=== PATIENT | female | born 1985 | race Hispanic/Latino ===

== ENCOUNTER 2019-08-02 22:30 | Emergency (ER) | payer BC ==
[~2019-08-02] VITALS: Ht 162.6 cm; Wt 129.7 kg
--- NOTE | 2019-08-02 23:14 | Diagnostic Imaging Report ---
EXAMINATION: PA and lateral views of the chest. COMPARISON: None CLINICAL HISTORY: Cough, shortness of breath, flulike symptoms DISCUSSION: Lines/tubes: None. Lungs: The lungs are well inflated and clear. There is no evidence of pneumonia or pulmonary edema. Pleura: There is no pleural effusion or pneumothorax. Heart and mediastinum: Cardiomediastinal silhouette is unremarkable. Pulmonary vasculature is normal. Bones and soft tissues: No acute bony abnormalities. IMPRESSION: No acute cardiopulmonary abnormalities. Signed by: Dr. Brando Damon M.D. on 08/02/2019 11:11 PM
--- OUTSIDE RECORDS SUMMARY | 2019-08-03 06:07 | XMS REPORT | CCD ---
Author Author Auto Generated Organization [facility] Address Unknown Phone Unavailable Care Team Providers Care Safety Glass Installer Name Role Phone EstebanSamueljessi RP Allergies, Adverse Reactions, Alerts Substance Reaction Status NKDA Active Medications Medication Instructions Start Date End Date Status rubella virus 0.5 ml, Route: SUB-Q, Drug Form: 08/14/2009 08/15/2009 Discontinued vaccine PDR/INJ, ONCALL, PRN Vaccination, Start date: 08/14/09 20:28:00, Duration: 30 day, Stop date: 09/13/09 20:27:00 Immunizations Vaccine Date Status rubella virus vaccine1, 2 08/15/2009 Auth (Verified) 1Reason for Medication: Vaccination 2Result Comment: Pt and instructed to not get for 3 months, instructed vaccine could hurt fetus if pt gets within 3 months. pt and state they understand. Vital Signs Most recent to oldest [Reference Range]: 1 Height 162.56 cm (11/25/2011 09:43:00) Weight 137.727 kg (11/25/2011 09:43:00)
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
--- OUTSIDE RECORDS SUMMARY | 2019-08-03 06:07 | XMS REPORT | Summary of Care ---
Author Author [facility] [place] Organization [facility] Address Unknown Phone Unavailable Encounter HQ Alexis(VICENTA) [id number] Date(s): 09/02/15 - 09/02/15 [facility] [address] [place] [phone] Final: Excessive and frequent menstruation with regular cycle Final: Unspecified ovarian cysts Discharge Disposition: Home Attending Physician: Nash Romero MD Vital Signs No data available for this section Problem List No data available for this section Allergies, Adverse Reactions, Alerts Substance Reaction Severity Status NKDA Active Medications No data available for this section Results No data available for this section Immunizations Vaccine Date Refusal Reason influenza virus vaccine, inactivated1 01/15/12 rubella virus vaccine2, 3 08/15/09 1Result Comment: arm Left 2Reason for Medication: Vaccination 3Result Comment: Pt and instructed to not get for 3 months, instructed vaccine could hurt fetus if pt gets within 3 months. pt and state they understand. Procedures No data available for this section Social History No data available for this section Assessment and Plan No data available for this section
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
--- OUTSIDE RECORDS SUMMARY | 2019-08-03 06:07 | XMS REPORT | CCD ---
Author Author Auto Generated Organization [facility] Address Unknown Phone Unavailable Care Team Providers Care Community Health Program Coordinator Name Role Phone Megan Alejo V RP Nash Romero I CP Allergies, Adverse Reactions, Alerts Substance Reaction Status NKDA Active Medications Medication Instructions Start Date End Date Status rubella virus 0.5 ml, Route: SUB-Q, Drug Form: 08/14/2009 08/15/2009 Discontinued vaccine PDR/INJ, ONCALL, PRN Vaccination, Start date: 08/14/09 20:28:00, Duration: 30 day, Stop date: 09/13/09 20:27:00 ibuprofen 800 mg 800 mg, 1 tab, PO, Q12H, PRN, 60 01/14/2012 Ordered oral tablet tab, Other -See Comment, Substitution Allowed, TAB Colace 100 mg oral 100 mg, 1 cap, PO, BID, 120 tab, 01/14/2012 Ordered capsule Substitution Allowed, CAP Vicodin 5/500 oral 1-2 tab, PO, Q4-6H, PRN, 30 tab, 01/14/2012 01/19/2012 Ordered tablet Pain, Substitution Allowed, Maintenance ondansetron 4 mg, 2 mL, Route: IVP, Drug form: 01/13/2012 01/15/2012 Discontinued INJ, Q8H, PRN Nausea & Vomiting, Start date: 01/13/12 13:00:00, Duration: 30 day, Stop date: 02/12/12 12:59:00 methylergonovine 0.2 mg, 1 mL, Route: IM, Drug form: 01/13/2012 01/15/2012 Discontinued INJ, PRN, PRN Other -See Comment, Start date: 01/13/12 13:00:00, Duration: 30 day, Stop date: 02/12/12 13:59:00 zolpidem 5 mg, 1 tab, Route: PO, Drug form: 01/13/2012 01/15/2012 Discontinued TAB, Bedtime, PRN Sleep, Start date: 01/13/12 13:00:00, Duration: 30 day, Stop date: 02/12/12 12:59:00 Dermoplast 20% 1 spray, Route: TOP, PRN, Drug 01/13/2012 01/15/2012 Discontinued topical spray form: SPRY PRN Irritation, Start date: 01/13/12 13:00:00, Duration: 30 day, Stop date: 02/12/12 13:59:00 lanolin topical 1 appl, Route: TOP, PRN, Drug form: 01/13/2012 01/15/2012 Discontinued OINT PRN Other -See Comment, Start date: 01/13/12 13:00:00, Duration: 30 day, Stop date: 02/12/12 13:59:00 docusate 100 mg, 1 cap, Route: PO, Drug 01/13/2012 01/15/2012 Discontinued form: CAP, BID, PRN Constipation, Start date: 01/13/12 13:00:00, Duration: 30 day, Stop date: 02/12/12 12:59:00 M-M-R II 0.5 ml, Route: SUB-Q, Drug Form: 01/13/2012 01/15/2012 Discontinued PDR/INJ, ONCALL, Start date: 01/13/12 13:00:00, Duration: 1 doses or times famotidine 20 mg, 2 mL, Route: IVP, Drug form: 01/12/2012 01/13/2012 Discontinued INJ, ONCALL, Start date: 01/12/12 23:00:00, Duration: 30 day, Stop date: 02/11/12 23:59:00 ondansetron 4 mg, 2 mL, Route: IVP, Drug form: 01/12/2012 01/13/2012 Discontinued INJ, Q8H, PRN Nausea & Vomiting, Start date: 01/12/12 22:58:00, Duration: 30 day, Stop date: 02/11/12 22:57:00 misoprostol 1,000 microgram, 5 tab, Route: NM, 01/12/2012 01/13/2012 Discontinued Drug form: TAB, ONCALL, Start date: 01/12/12 23:00:00, Duration: 1 doses or times metoclopramide 10 mg, 2 mL, Route: IVP, Drug form: 01/12/2012 01/13/2012 Discontinued INJ, ONCALL, Start date: 01/12/12 23:00:00, Duration: 30 day, Stop date: 02/11/12 23:59:00 lidocaine 1% 20 ml, Route: PERCUT, Drug Form: 01/12/2012 01/13/2012 Discontinued INJ, PRN, PRN Other -See Comment, Start date: 01/12/12 22:58:00, Duration: 1 doses or times, Stop date: Limited # of times terbutaline 0.25 mg, 0.25 mL, Route: SUB-Q, 01/12/2012 01/13/2012 Discontinued Drug form: INJ, PRN, PRN Other -See Comment, Start date: 01/12/12 22:58:00, Duration: 1 doses or times, Stop date: Limited # of times methylergonovine 0.2 mg, 1 mL, Route: IM, Drug form: 01/12/2012 01/13/2012 Discontinued INJ, ONCALL, Start date: 01/12/12 23:00:00, Duration: 30 day, Stop date: 02/11/12 23:59:00 citric acid-sodium 30 ml, Route: PO, Drug Form: SOLN, 01/12/2012 01/13/2012 Discontinued citrate ONCALL, Start date: 01/12/12 23:00:00, Duration: 30 day, Stop date: 02/11/12 23:59:00 oxytocin-add to 20 unit, 2 mL, Route: INJ, Drug 01/12/2012 01/13/2012 Discontinued current IV form: SOLN, ONCALL, Start date: 01/12/12 23:00:00, Duration: 2 day, Stop date: 01/14/12 22:59:00 carboprost 250 microgram, 1 mL, Route: IM, 01/12/2012 01/13/2012 Discontinued Drug form: INJ, ONCALL, Start date: 01/12/12 23:00:00, Duration: 30 day, Stop date: 02/11/12 23:59:00 acetaminophen 650 mg, 2 tab, Route: PO, Drug 01/13/2012 01/15/2012 Discontinued form: TAB, Q4H, PRN Headache, Start date: 01/13/12 13:00:00, Duration: 30 day, Stop date: 02/12/12 12:59:00 Lactated Ringers 20 unit, 1,000 mL, Rate: 125 ml/hr, 01/13/2012 01/15/2012 Completed 1000ml+Pitocin 20 Infuse over: 8 hr, Route: IV, Total units IV (Premix) 20 Volume: 1,000 mL, Start date: unit 01/13/12 13:00:00, Duration: 2 day, Stop date: 01/15/12 12:59:00, Replace Every: 8 hr ibuprofen 800 mg, 1 tab, Route: PO, Drug 01/13/2012 01/15/2012 Discontinued form: TAB, Q8H, PRN Pain, Start date: 01/13/12 13:00:00, Duration: 30 day, Stop date: 02/12/12 12:59:00 acetaminophen-hydroc 2 tab, Route: PO, Drug Form: TAB, 01/13/2012 01/15/2012 Discontinued odone 325 mg-5 mg Q4H, PRN Pain Score 4-6, Start oral tablet date: 01/13/12 13:00:00, Duration: 30 day, Stop date: 02/12/12 12:59:00 acetaminophen-hydroc 1 tab, Route: PO, Drug Form: TAB, 01/13/2012 01/15/2012 Discontinued odone 325 mg-5 mg Q4H, PRN Pain Score 1-3, Start oral tablet date: 01/13/12 13:00:00, Duration: 30 day, Stop date: 02/12/12 12:59:00 Lactated Ringers IV 1,000 mL, Rate: 100 ml/hr, Infuse 01/13/2012 01/15/2012 Discontinued 1,000 mL over: 10 hr, Route: IV, Total Volume: 1,000, Start date: 01/13/12 13:00:00, Duration: 30 day, Stop date: 02/12/12 12:59:00, PRN to maintain IV access Lactated Ringers 20 unit, 1,000 mL, Rate: 125 ml/hr, 01/13/2012 01/15/2012 Completed 1000ml+Oxytocin 20 Infuse over: 8 hr, Route: IV, Total units IV (Premix) 20 Volume: 1,000, Start date: 01/13/12 unit 13:00:00, Duration: 2 day, Stop date: 01/15/12 12:59:00, Replace Every: 8 hr, Replace every 24 hrs; PRN for moderate to severe post blee... 1 tab, Route: PO, Drug Form: TAB, 01/14/2012 01/15/2012 Discontinued Multivitamins oral Daily, Start date: 01/14/12 tablet 9:00:00, Duration: 30 day, Stop date: 02/12/12 9:00:00 Lactated Ringers 20 unit, 1,000 mL, Rate: Titrate, 01/12/2012 01/13/2012 Discontinued 1000ml+Pitocin 20 Route: IV, Total Volume: 1,000 mL, units IV (Premix Start date: 01/12/12 23:03:00, Titrate) 20 unit Duration: 2 day, Stop date: 01/14/12 23:02:00, Replace Every: 24 hr butorphanol 1 mg, 0.5 mL, Route: IVP, Drug 01/12/2012 01/13/2012 Discontinued form: INJ, Q2H, PRN Pain Score 1-5, Start date: 01/12/12 22:58:00, Duration: 30 day, Stop date: 02/11/12 22:57:00 ibuprofen 800 mg, 1 tab, Route: PO, Drug 01/12/2012 01/13/2012 Discontinued form: TAB, Q8H, PRN Other -See Comment, Start date: 01/12/12 22:58:00, Duration: 30 day, Stop date: 02/11/12 22:57:00 butorphanol 2 mg, 1 mL, Route: IVP, Drug form: 01/12/2012 01/13/2012 Discontinued INJ, Q2H, PRN Pain Score 6-10, Start date: 01/12/12 22:58:00, Duration: 30 day, Stop date: 02/11/12 22:57:00 acetaminophen-hydroc 2 tab, Route: PO, Drug Form: TAB, 01/12/2012 01/13/2012 Discontinued odone 325 mg-5 mg Q4H, PRN Pain Score 4-6, Start oral tablet date: 01/12/12 22:58:00, Duration: 30 day, Stop date: 02/11/12 22:57:00 acetaminophen-hydroc 1 tab, Route: PO, Drug Form: TAB, 01/12/2012 01/13/2012 Discontinued odone 325 mg-5 mg Q4H, PRN Pain Score 1-3, Start oral tablet date: 01/12/12 22:58:00, Duration: 30 day, Stop date: 02/11/12 22:57:00 Lactated Ringers 1,000 mL, Rate: 100 ml/hr, Infuse 01/12/2012 01/13/2012 Discontinued Injection IV 1,000 over: 10 hr, Route: IV, Total mL Volume: 1,000, Bolus for regional anesthesia per unit protocol, Start date: 01/12/12 22:58:00, Duration: 30 day, Stop date: 02/11/12 22:57:00 Lactated Ringers IV 1,000 mL, Rate: 125 ml/hr, Infuse 01/12/2012 01/13/2012 Discontinued 1,000 mL over: 8 hr, Route: IV, Total Volume: 1,000, Start date: 01/12/12 22:58:00, Duration: 30 day, Stop date: 02/11/12 22:57:00 Lactated Ringers 20 unit, 1,000 mL, Rate: 125 ml/hr, 01/12/2012 01/13/2012 Discontinued 1000ml+Pitocin 20 Infuse over: 8 hr, Route: IV, Total units IV (Premix) 20 Volume: 1,000 mL, Start date: unit 01/12/12 22:58:00, Duration: 2 day, Stop date: 01/14/12 22:57:00, Replace Every: 8 hr penicillin G 2,500,000 unit, Route: IVPB, Drug 01/13/2012 01/14/2012 Discontinued potassium form: PDR/INJ, ABXQ4H, Start date: 01/13/12 3:00:00, Duration: 30 day, Stop date: 02/11/12 23:00:00 Ambien 10 mg, 2 tab, Route: PO, Drug form: 01/12/2012 01/15/2012 Discontinued TAB, Bedtime, PRN Insomnia, Start date: 01/12/12 23:07:00, Duration: 30 day, Stop date: 02/11/12 23:06:00 Cervidil 10 mg, 1 supp, Route: VAG, Drug 01/12/2012 01/13/2012 Completed form: INS, ONCE, Start date: 01/12/12 23:02:00, Duration: 1 doses or times, Stop date: 01/12/12 23:02:00 penicillin G 2,500,000 unit, Route: IVPB, 01/12/2012 01/12/2012 Deleted potassium ABXQ4H, Start date: 01/12/12 23:00:00 penicillin G 5,000,000 unit, Route: IVPB, Drug 01/12/2012 01/12/2012 Completed potassium 5,000,000 form: PDR/INJ, ONCALL, Start date: units injection 01/12/12 23:00:00 influenza virus 0.5 ml, Route: IM, Drug Form: INJ, 01/15/2012 01/15/2012 Completed vaccine, inactivated Start date: 01/15/12 9:00:00, Stop date: 01/15/12 9:00:00 influenza virus 0.5 ml, Route: IM, Drug Form: INJ, 01/15/2012 01/15/2012 Completed vaccine, inactivated Daily, Start date: 01/15/12 9:00:00, Duration: 1 doses or times, Stop date: 01/15/12 9:00:00 Immunizations Vaccine Date Status influenza virus vaccine, inactivated1 01/15/2012 Auth (Verified) rubella virus vaccine2, 3 08/15/2009 Auth (Verified) 1Result Comment: arm Left 2Reason for Medication: Vaccination 3Result Comment: Pt and instructed to not get for 3 months, instructed vaccine could hurt fetus if pt gets within 3 months. pt and state they understand. Vital Signs Most recent to oldest [Reference Range]: 1 Height 162.56 cm (01/12/2012 22:59:00) Weight 138.182 kg (01/12/2012 22:59:00) Results BLOOD BANK RESULTS Most recent to oldest [Reference Range]: 1 ABO/Rh O POS *Unknown* (01/12/2012 22:45:00) Antibody Scrn Negative (01/12/2012 22:45:00) CHEMISTRY Most recent to oldest [Reference Range]: 1 Temp Cord Art 37.0 DegC *NA* (01/13/2012 11:52:00) pH Cord Art [7.11-7.36] 7.25 (01/13/2012 11:52:00) PCO2 Cord Art [37-77 mmHg] 62 mmHg (01/13/2012 11:52:00) PO2 Cord Art [3-33 mmHg] 8 mmHg (01/13/2012 11:52:00) HCO3 Cord Art 27 mMol/L *NA* (01/13/2012 11:52:00) BE Cord Art -1 mMol/L *NA* (01/13/2012 11:52:00) Temp Cord Keith 37.0 DegC *NA* (01/13/2012 11:52:00) pH Cord Keith [7.16-7.41] 7.34 (01/13/2012 11:52:00) PCO2 Cord Keith [31-65 mmHg] 42 mmHg (01/13/2012 11:52:00) PO2 Cord Keith [13-39 mmHg] 28 mmHg (01/13/2012 11:52:00) HCO3 Cord Keith 23 mMol/L *NA* (01/13/2012 11:52:00) BE Cord Keith -3 mMol/L *NA* (01/13/2012 11:52:00) HEMATOLOGY Most recent to oldest [Reference Range]: 1 WBC [3.7-10.4 K/CMM] 10.7 K/CMM *HI* (01/12/2012 23:06:00) RBC [4.20-5.40 M/CMM] 3.87 M/CMM *LOW* (01/12/2012 23:06:00) Hgb [12.0-16.0 g/dL] 11.0 g/dL *LOW* (01/12/2012 23:06:00) Hct [36.0-48.0 %] 32.8 % *LOW* (01/12/2012 23:06:00) MCV [81.0-99.0 fL] 84.8 fL (01/12/2012 23:06:00) MCH [27.0-31.0 pg] 28.4 pg (01/12/2012 23:06:00) MCHC [32.0-36.0 g/dL] 33.4 g/dL (01/12/2012 23:06:00) RDW [11.5-14.5 %] 17.0 % *HI* (01/12/2012 23:06:00) Platelet [133-450 K/CMM] 180 K/CMM (01/12/2012 23:06:00) MPV [7.4-10.4 fL] 10.5 fL *HI* (01/12/2012 23:06:00) Segs [45.0-75.0 %] 72.7 % (01/12/2012 23:06:00) Lymphocytes [20.0-40.0 %] 20.8 % (01/12/2012 23:06:00) Monocytes [2.0-12.0 %] 5.4 % (01/12/2012 23:06:00) Eosinophils [0.0-4.0 %] 0.8 % (01/12/2012 23:06:00) Basophils [0.0-1.0 %] 0.3 % (01/12/2012 23:06:00) Segs-Bands # [1.5-8.1 K/CMM] 7.8 K/CMM (01/12/2012 23:06:00) Lymphocytes # [1.0-5.5 K/CMM] 2.2 K/CMM (01/12/2012 23:06:00) Monocytes # [0.0-0.8 K/CMM] 0.6 K/CMM (01/12/2012 23:06:00) Eosinophils # [0.0-0.5 K/CMM] 0.1 K/CMM (01/12/2012 23:06:00) Basophils # [0.0-0.2 K/CMM] 0.0 K/CMM (01/12/2012 23:06:00) IMMUNOLOGY Most recent to oldest [Reference Range]: 1 RPR [Non Reactive] Non Reactive (01/12/2012 23:06:00) HIV 1/2 Ab (LD) [Negative] Negative *NA* (01/12/2012 23:06:00) Hep Bs Ag [Negative] Negative *NA* (01/12/2012 23:06:00)
--- OUTSIDE RECORDS SUMMARY | 2019-08-03 06:08 | XMS REPORT | Summary of Care ---
Author Author NEREYDA Waller, LUKE Organization Unknown Address [facility] Phone Unavailable Care Team Providers Care Mechanical Assembly Name Role Phone R.N. Unavailable Unavailable Unavailable Unavailable Functional Status Name Dates Details Functional status health issues are not documented Status: Name Dates Details Cognitive status health issues are not documented Status: Problems Name Dates Details Morbid obesity (278.01, E66.01) Status: Active IUGR, (764.90, P05.9) Status: Active High-risk (V23.9, O09.90) Status: Active Encounter for visit (V24.2, Z39.2) Status: Active care following vaginal delivery (V24.2, Z39.2) Status: Active Post-operative state (V45.89, Z98.890) Status: Active Encounter for routine gynecological examination with Papanicolaou smear of cervix (V72.31, Z01.419) Status: Active Medications Name Dates Details Plus Iron 29-1 MG Oral Tablet R.N. * Start : 22-Jul-2016 Active Allergies and Adverse Reactions Name Dates Details No Known Allergies (Allergy) Status: Active Past Medical History Name Dates Details History of No significant past medical history Status: Resolved Procedures Procedure Dates Details . [facility] - Affirm VPIII (BV Panel) Date: 11-Nov-2017 . [facility] - GC/Chlamydia Date: 11-Nov-2017 [Q] HIV AB, HIV 1/2, EIA, WITH REFLEXES Date: 11-Nov-2017 History of Tubal Ligation Completed Immunization Name Dates Details Fluzone INJ Lot #: [id number] on: 22-Jul-2016 Tdap (Adacel) Lot #: [id number] on: 22-Jul-2016 Social History Name Dates Details - Status: Name Dates Details Never smoker Never smoker Vital Signs Date Test Result Details [id number] BP Systolic 114 mm[Hg] Status: Comments: Location: RUE; Position: Sitting BP Diastolic 66 mm[Hg] Status: Comments: Location: RUE; Position: Sitting Height 64 in Status: Weight 300 lb Status: Body Mass Index Calculated 51.5 kg/m2 Status: Body Surface Area Calculated 2.32 m2 Status: Heart Rate 90 /min Status: Results Date Description Value Details [[facility]] CBC (INCLUDES DIFF/PLT) WBC 8.8 {K/CMM} Range: 3.7-10.4 RBC 4.27 {M/CMM} Range: 4.20-5.40 Hgb 12.0 g/dl Range: 12.0-16.0 Hct 36.4 % Range: 36.0-48.0 MCV 85.4 fL Range: 80.0-98.0 MCH 28.2 pg Range: 27.0-31.0 MCHC 33.0 g/dl Range: 32.0-36.0 RDW 14.1 % Range: 11.5-14.5 Platelet 245 {K/CMM} Range: 133-450 Mean Platelet Volume 10.1 fL Range: 7.4-10.4 : [[facility]] Differential Segmented Neutrophils 62.8 % Range: 45.0-75.0 Monocytes 5.2 % Range: 2.0-12.0 Lymphocytes 29.8 % Range: 20.0-40.0 Eosinophils 1.3 % Range: 0.0-4.0 Basophils 0.9 % Range: 0.0-1.0 Segs-Bands # 5.6 {K/CMM} Range: 1.5-8.1 Lymphocytes # 2.6 {K/CMM} Range: 1.0-5.5 Monocytes # 0.5 {K/CMM} Range: 0.0-0.8 Eosinophils # 0.1 {K/CMM} Range: 0.0-0.5 Basophils # 0.1 {K/CMM} Range: 0.0-0.2 :30 [QL] LIPID PANEL Chol 186 mg/dl Range: <=199 Trig 283 mg/dl (Above high threshold) Range: <=149 HDL Cholesterol 55 mg/dl (Below low threshold) Range: >=61 CHD Risk 3.38 (Below low threshold) Range: 3.90-5.80 LDL 74 mg/dl Range: <=99 VLDL 57 :30 [QH] HEPATITIS B SURFACE ANTIGEN W/REFL CONFIRM Hepatitis B Surface Antigen Negative Range: Negative :30 [QLH] HEPATITIS C ANTIBODY Hepatitis C Antibody Negative :30 [H] HIV 4th Gen w/ Reflexes HIV Ag/Ab 4th Gen Negative Range: Negative :30 [QLH] HEMOGLOBIN A1c Hemoglobin A1c 5.5 % Range: <=5.6 : [QLH] RPR RPR Cancel Reason: Modified Order : [H] Treponemal Scr w/ RPR if Indicated Treponemal Screen Non Reactive Range: Non Reactive Plan of Care Name Dates Details Planned Observations Planned Goals not documented Instructions Name Dates Details Instructions not documented Encounters Appointment; ELECTRONIC TEST TECHNICIAN, ROOM1 Encounter Diagnosis: Problem not documented On: 25-May-2016 8:00 Appointment; ELECTRONIC TEST TECHNICIAN, ROOM2 Encounter Diagnosis: Problem not documented On: 15-Jun-2016 7:45 Appointment; ELECTRONIC TEST TECHNICIAN, ROOM1 Encounter Diagnosis: Problem not documented On: 06-Jul-2016 9:30 Appointment; ELECTRONIC TEST TECHNICIAN, ROOM1 Encounter Diagnosis: Problem not documented On: 15-Jul-2016 10:45 Appointment; ELECTRONIC TEST TECHNICIAN, ROOM1 Encounter Diagnosis: Problem not documented On: 20-Jul-2016 10:00 Appointment; ELECTRONIC TEST TECHNICIAN, ROOM1 Encounter Diagnosis: Problem not documented On: 22-Jul-2016 8:45 Appointment; OB/MD HIGH Encounter Diagnosis: Problem not documented On: 22-Jul-2016 10:30 Appointment; OB/RES, US Encounter Diagnosis: Problem not documented On: 26-Jul-2016 9:15 Appointment; OB/RES, US Encounter Diagnosis: Problem not documented On: 29-Jul-2016 13:45 Appointment; OB/RES, US Encounter Diagnosis: Problem not documented On: 02-Aug-2016 13:45 Appointment; OB/RES, ULTRASOUND Encounter Diagnosis: Problem not documented On: 05-Aug-2016 9:00 Appointment; OB/MD HIGH Encounter Diagnosis: Problem not documented On: 05-Aug-2016 10:00 Appointment; OB/RES, US Encounter Diagnosis: Problem not documented On: 09-Aug-2016 10:00 Appointment; OB/RES, ULTRASOUND Encounter Diagnosis: Problem not documented On: 12-Aug-2016 10:30 Appointment; OB/RES, US Encounter Diagnosis: Problem not documented On: 16-Aug-2016 8:30 Appointment; OB/RES, US Encounter Diagnosis: Problem not documented On: 19-Aug-2016 8:30 Appointment; OB/MD, HIGH Encounter Diagnosis: Problem not documented On: 19-Aug-2016 9:30 Appointment; OB/RES, US Encounter Diagnosis: Problem not documented On: 23-Aug-2016 8:30 Appointment; OB/RES, US Encounter Diagnosis: Problem not documented On: 26-Aug-2016 8:30 Appointment; OB/MD, HIGH Encounter Diagnosis: Problem not documented On: 26-Aug-2016 9:30 Appointment; OB/RES, US Encounter Diagnosis: Problem not documented On: 30-Aug-2016 8:30 Appointment; OB/RES, US Encounter Diagnosis: Problem not documented On: 02-Sep-2016 8:30 Appointment; OB/MD, HIGH Encounter Diagnosis: Problem not documented On: 02-Sep-2016 9:30 Appointment; OB/RES, US Encounter Diagnosis: Problem not documented On: 06-Sep-2016 8:30 Appointment; OB/RES, US Encounter Diagnosis: Problem not documented On: 09-Sep-2016 10:45 Appointment; OB/RES, US Encounter Diagnosis: Problem not documented On: 13-Sep-2016 8:30 Appointment; EDUCATION, POST Encounter Diagnosis: Problem not documented On: 11-Oct-2016 13:00 Appointment; ANTONETTE WONG M.D. Encounter Diagnosis: Problem not documented On: 25-Oct-2016 9:00 Appointment; YAW BECERRA M.D. Encounter Diagnosis: Problem not documented On: 10-Nov-2016 9:30 Appointment; OCHOA GRIFFITHS M.D. Encounter Diagnosis: Problem not documented On: 11-Nov-2017 14:30
--- OUTSIDE RECORDS SUMMARY | 2019-08-03 06:08 | XMS REPORT ---
Author Author [facility] Address Unknown Phone Unavailable Care Team Providers Care Classification Case Manager Name Role Phone Stacy DELGADO Unavailable Unavailable Problems This patient has no known problems. Allergies, Adverse Reactions, Alerts This patient has no known allergies or adverse reactions. Medications This patient has no known medications. Results Test Description Test Time Test Comments Text Results Atomic Results Result Comments CXR 2 [facility] 2019-08-02 23:11:00 [facility] [address] [address] Patient Name: KRISTI MORAN MR #: [id number] : 1985 Age/Sex: 34/F Req #: [id number] Adm Physician: Ordered by: FRANCISCO JAVIER DELGADO MD Report #: [id number] Location: [facility] Room/Bed: Procedure: [id number] HOPD/CXR 2 VIEW - [facility] Exam Date: 08/02/19 Exam Time: 2300 REPORT STATUS: Signed EXAMINATION: PA and lateral views of the chest. COMPARISON: None CLINICAL HISTORY: Cough, shortness of breath, flulike symptoms DISCUSSION: Lines/tubes: None. Lungs: The lungs are well inflated and clear. There is no evidence of pneumonia or pulmonary edema. Pleura: There is no pleural effusion or pneumothorax. Heart and mediastinum: Cardiomediastinal silhouette is unremarkable. Pulmonary vasculature is normal. Bones and soft tissues: No acute bony abnormalities. IMPRESSION: No acute cardiopulmonary abnormalities. Signed by: Dr. Gama Damon M.D. on 08/02/2019 11:11 PM Dictated By: GAMA DAMON MD 10 Transcribed By: LETY on 08/02/192310 COPY TO: FRANCISCO JAVIER DELGADO MD
--- OUTSIDE RECORDS SUMMARY | 2019-08-03 06:08 | XMS REPORT | Summary of Care ---
Author Author [facility] Organization [facility] Address Unknown Phone Unavailable Encounter HQ Alexis(VICENTA) [id number] Date(s): 09/07/16 - 09/10/16 [facility] [address] [employer] provided by [facility] [place] [address]- Discharge Disposition: Home or Self Care Attending Physician: Janene Marino MD Admitting Physician: Janene Marino MD Vital Signs 1 2 3 Most recent to oldest [Reference Range]: 162.56 cm (09/07/16 8:18 AM) Height 98.0 DegF (09/10/16 12:00 AM) 97.7 DegF (09/09/16 10:16 AM) 98.0 DegF (09/09/16 12:01 AM) Temperature Oral [96.4-99.1 DegF] 122/82 mmHg (09/10/16 8:30 AM) 126/76 mmHg (09/10/16 12:00 AM) 130/88 mmHg (09/09/16 10:16 AM) Blood Pressure [90-140/60-90 mmHg] 18 BRMIN (09/10/16 8:30 AM) 18 BRMIN (09/10/16 12:00 AM) 20 BRMIN (09/09/16 10:16 AM) Respiratory Rate [14-20 BRMIN] 80 bpm (09/10/16 8:30 AM) 77 bpm (09/10/16 12:00 AM) 67 bpm (09/09/16 10:16 AM) Peripheral Pulse Rate [60-100 bpm] 136.364 kg (09/07/16 8:18 AM) Weight 51.6 m2 (09/07/16 8:18 AM) Body Mass Index Problem List Condition Effective Dates Status Health Status Informant growth Active restriction(Confirme d) (Confirmed) 12/11/15 - 09/08/16 Resolved (Confirmed) 04/08/11 - 01/13/12 Resolved (Confirmed) 11/07/08 - 08/14/09 Resolved (Confirmed) 09/22/02 - 07/13/03 Resolved Allergies, Adverse Reactions, Alerts Substance Reaction Severity Status NKDA Active Medications acetaminophen-hydrocodone 325 mg-5 mg oral tablet 2 tab, Route: PO, Drug Form: TAB, Dosing Weight 136.364, kg, Q4H, PRN Pain Score 7-10, Start date: 09/07/16 9:13:00 CDT, Duration: 30 day, Stop date: 10/07/16 9 :12:00 ARCADE ATTENDANT Notes: (Same as: Odessa 325/5) Do not exceed 4gm/day of acetaminophen. Start Date: 09/07/16 Stop Date: 09/08/16 Status: Discontinued acetaminophen-hydrocodone 325 mg-5 mg oral tablet 1 tab, Route: PO, Drug Form: TAB, Dosing Weight 136.364, kg, Q4H, PRN Pain Score 4-6, Start date: 09/07/16 9:13:00 CDT, Duration: 30 day, Stop date: 10/07/16 9: 12:00 ARCADE ATTENDANT Notes: (Same as: Odessa 325/5) Do not exceed 4gm/day of acetaminophen. Start Date: 09/07/16 Stop Date: 09/08/16 Status: Discontinued bisacodyl 10 mg, 1 supp, Route: GA, Drug form: SUPP, PRN, Dosing Weight 136.364, kg, PRN O ther -See Comment, Start date: 09/08/16 2:28:00 CDT, Duration: 30 day, Stop date : 10/08/16 1:27:00 ARCADE ATTENDANT Notes: (Same As: Dulcolax, Bisco-Lax) Start Date: 09/08/16 Stop Date: 09/10/16 Status: Discontinued bisacodyl 15 mg, 3 tab, Route: PO, Drug form: ECTAB, Daily, Dosing Weight 136.364, kg, PRN Other -See Comment, Start date: 09/08/16 2:28:00 CDT, Duration: 30 day, Stop da te: 10/08/16 2:27:00 ARCADE ATTENDANT Notes: (Same As: Dulcolax, Correctol) (Do Not Crush) "Do Not Crush" Start Date: 09/08/16 Stop Date: 09/10/16 Status: Discontinued butorphanol 2 mg, 1 mL, Route: IVP, Drug form: INJ, Q2H, Dosing Weight 136.364, kg, PRN Pain Score 7-10, Start date: 09/07/16 9:13:00 CDT, Duration: 30 day, Stop date: 09/15 02/27 9:12:00 ARCADE ATTENDANT Notes: (Same As: Stadol) MEDICATION WASTE Product Size: 2 mgProduct Was rayray: ___ mg Start Date: 09/07/16 Stop Date: 09/08/16 Status: Discontinued butorphanol 1 mg, 0.5 mL, Route: IVP, Drug form: INJ, Q2H, Dosing Weight 136.364, kg, PRN Pa in Score 4-6, Start date: 09/07/16 9:13:00 CDT, Duration: 30 day, Stop date: 9:12:00 ARCADE ATTENDANT Notes: (Same As: Stadol) MEDICATION WASTE Product Size: 2 mgProduct Was rayray: ___ mg Start Date: 09/07/16 Stop Date: 09/08/16 Status: Discontinued carboprost 250 microgram, 1 mL, Route: IM, Drug form: INJ, ONCALL, Dosing Weight 136.364, k g, Start date: 09/07/16 10:00:00 CDT, Duration: 30 day, Stop date: 10/07/16 8:59 :00 ARCADE ATTENDANT Notes: (Same As: Hemabate) Start Date: 09/07/16 Stop Date: 09/08/16 Status: Discontinued Cervidil 10 mg vaginal insert 10 mg, 1 supp, Route: VAG, Drug form: SUPP, ONCE, Dosing Weight 136.364, kg, Sta rt date: 09/07/16 9:58:00 CDT, Stop date: 09/07/16 9:58:00 CDT Notes: (Same as: Cervidil) Start Date: 09/07/16 Stop Date: 09/07/16 Status: Completed citric acid-sodium citrate 30 mL, Route: PO, Drug Form: SOLN, Dosing Weight 136.364, kg, ONCALL, Start date : 09/07/16 10:00:00 CDT, Duration: 30 day, Stop date: 10/07/16 8:59:00 ARCADE ATTENDANT Notes: (Same As: Giles Villanuevara-2) Sodium citrate-citric acid (500-334 mg/5 mL): 1 mL contains sodium 1 mEq/mL and bicarbonate 1 mEq/mL Start Date: 09/07/16 Stop Date: 09/08/16 Status: Discontinued Dermoplast 20% topical spray 1 spray, Route: TOP, PRN, Drug form: SPRY, PRN Irritation, Start date: 09/08/16 2:28:00 CDT, Duration: 30 day, Stop date: 10/08/16 1:27:00 ARCADE ATTENDANT Notes: (Same As: Dermoplast)WASTE: Aerosol - Return to Pharmacy FOR EXTERNAL US E ONLY Start Date: 09/08/16 Stop Date: 09/10/16 Status: Discontinued diphtheria/pertussis, acel/tetanus adult 2 units-15.5 mcg-5 units/0.5 mL intramu scular suspension 0.5 mL, Route: IM, Drug Form: SUSP, Dosing Weight 136.364, kg, ONCALL, Start valdo e: 09/08/16 3:00:00 CDT, Duration: 1 doses or times Notes: (Tdap ) For Adolecent and Adult use For IM Use. Same as: Adacel (Tdap) Start Date: 09/08/16 Stop Date: 09/10/16 Status: Discontinued docusate 100 mg, 1 cap, Route: PO, Drug form: CAP, BID, Dosing Weight 136.364, kg, PRN Co nstipation, Start date: 09/08/16 2:28:00 CDT, Duration: 30 day, Stop date: 10/08 2:27:00 ARCADE ATTENDANT Notes: (Same as: Colace) (Do Not Crush) Start Date: 09/08/16 Stop Date: 09/10/16 Status: Discontinued docusate sodium 100 mg oral capsule 100 mg=1 cap, PO, BID, PRN Constipation, # 60 cap, 1 Refill(s) Start Date: 09/10/16 Status: Ordered famotidine 20 mg, 2 mL, Route: IVP, Drug form: INJ, ONCALL, Dosing Weight 136.364, kg, Star t date: 09/07/16 10:00:00 CDT, Duration: 30 day, Stop date: 10/07/16 8:59:00 ARCADE ATTENDANT Notes: (Same as: Pepcid)Can be dilute in 5-10cc NS IVP: Slow IV push over at le ast 2 minutes. Start Date: 09/07/16 Stop Date: 09/08/16 Status: Discontinued ferrous sulfate 325 mg oral enteric coated tablet 325 mg=1 tab, PO, Daily, # 60 tab, 3 Refill(s) Start Date: 09/10/16 Status: Ordered ibuprofen 600 mg, 1 tab, Route: PO, Drug form: TAB, Q6H, Dosing Weight 136.364, kg, Start date: 09/08/16 6:00:00 CDT, Duration: 30 day, Stop date: 10/08/16 0:00:00 ARCADE ATTENDANT Notes: (Same as: Motrin)"Do Not Crush" Take with food. Start Date: 09/08/16 Stop Date: 09/10/16 Status: Discontinued ibuprofen 600 mg, 1 tab, Route: PO, Drug form: TAB, Q6H, Dosing Weight 136.364, kg, PRN Ot her -See Comment, Start date: 09/07/16 9:13:00 CDT, Duration: 30 day, Stop date: 10/07/16 9:12:00 ARCADE ATTENDANT Notes: (Same as: Motrin)"Do Not Crush" Take with food. Start Date: 09/07/16 Stop Date: 09/08/16 Status: Discontinued ibuprofen 600 mg oral tablet 600 mg=1 tab, PO, Q6H, # 32 tab, 1 Refill(s) Start Date: 09/10/16 Stop Date: 10/11/16 Status: Ordered Lactated Ringers (Bolus) IV 1,000 mL, 1,000 ml/hr, Infuse Over: 1 hr, Route: IV, 1,000, Drug form: INJ, ONCE , Dosing Weight 136.364 kg, Start date: 09/07/16 9:13:00 CDT, Stop date: 6 9:13:00 CDT, Bolus for regional anesthesia per unit protocol Start Date: 09/07/16 Stop Date: 09/08/16 Status: Discontinued Lactated Ringers 1,000 mL 1,000 mL, Rate: 100 ml/hr, Infuse over: 10 hr, Route: IV, Dosing Weight 136.364 kg, Total Volume: 1,000, Start date: 09/08/16 2:28:00 CDT, Duration: 30 day, Sto p date: 10/08/16 2:27:00 ARCADE ATTENDANT Start Date: 09/08/16 Stop Date: 09/10/16 Status: Discontinued Lactated Ringers 1,000 mL 1,000 mL, Rate: 125 ml/hr, Infuse over: 8 hr, Route: IV, Dosing Weight 136.364 k g, Total Volume: 1,000, Start date: 09/07/16 9:13:00 CDT, Duration: 30 day, Stop date: 10/07/16 9:12:00 ARCADE ATTENDANT Start Date: 09/07/16 Stop Date: 09/08/16 Status: Discontinued lanolin topical 1 appl, Route: TOP, PRN, Drug form: OINT, PRN Other -See Comment, Start date: 2:28:00 CDT, Duration: 30 day, Stop date: 10/08/16 1:27:00 ARCADE ATTENDANT Start Date: 09/08/16 Stop Date: 09/10/16 Status: Discontinued lidocaine 1% 200 mg, 20 mL, Route: PERCUT, Drug Form: INJ, Dosing Weight 136.364, kg, PRN, GA N Other -See Comment, Start date: 09/07/16 9:13:00 CDT, Duration: 1 doses or ale es, Stop date: Limited # of times Notes: (Same as: Xylocaine) Start Date: 09/07/16 Stop Date: 09/08/16 Status: Discontinued lidocaine 1% injectable solution 0.25 mL, Route: INTRADERM, Drug Form: INJ, Dosing Weight 136.364, kg, PRN, PRN O ther -See Comment, Start date: 09/07/16 9:13:00 CDT, Duration: 30 day, Stop date : 10/07/16 8:12:00 ARCADE ATTENDANT Notes: Preservative free. (Same as: Xylocaine MPF) Start Date: 09/07/16 Stop Date: 09/08/16 Status: Discontinued M-M-R II 0.5 mL, Route: SUB-Q, Drug Form: PDR/INJ, Dosing Weight 136.364, kg, ONCALL, Giv e only if patient rubella non-immune, Start date: 09/08/16 3:00:00 CDT, Duration : 1 doses or times Notes: (Same as: M-M-R II) (qstrury-jhxzt-mgvjkzl virus vaccine 0.5 ml INJ VL)WA HAIM: F/P - Red; E -Red GIVE PRIOR TO DISCHARGE Start Date: 09/08/16 Stop Date: 09/10/16 Status: Discontinued methylergonovine 0.2 mg, 1 mL, Route: IM, Drug form: INJ, PRN, Dosing Weight 136.364, kg, PRN Oth er -See Comment, Start date: 09/08/16 2:28:00 CDT, Duration: 30 day, Stop date: 10/08/16 1:27:00 ARCADE ATTENDANT Notes: (Same as:Methergine) Start Date: 09/08/16 Stop Date: 09/10/16 Status: Discontinued methylergonovine 0.2 mg, 1 mL, Route: IM, Drug form: INJ, ONCALL, Dosing Weight 136.364, kg, Star t date: 09/07/16 10:00:00 CDT, Duration: 30 day, Stop date: 10/07/16 8:59:00 ARCADE ATTENDANT Notes: (Same as:Methergine) Start Date: 09/07/16 Stop Date: 09/08/16 Status: Discontinued misoprostol 1,000 microgram, 5 tab, Route: GA, Drug form: TAB, ONCALL, Dosing Weight 136.364 , kg, Start date: 09/07/16 10:00:00 CDT, Duration: 1 doses or times Notes: (Same as:Cytotec) Take with food Start Date: 09/07/16 Stop Date: 09/08/16 Status: Discontinued ondansetron 4 mg, 2 mL, Route: IVP, Drug form: INJ, Q8H, Dosing Weight 136.364, kg, PRN Naus ea & Vomiting, Start date: 09/08/16 2:28:00 CDT, Duration: 30 day, Stop date: 10/08/16 2:27:00 ARCADE ATTENDANT Notes: (Same as: Santana) MEDICATION WASTE Product Size: 4 mgProduct Was rayray: ___ mg Start Date: 09/08/16 Stop Date: 09/10/16 Status: Discontinued ondansetron 4 mg, 2 mL, Route: IVP, Drug form: INJ, Q8H, Dosing Weight 136.364, kg, PRN Naus ea & Vomiting, Start date: 09/07/16 9:13:00 CDT, Duration: 30 day, Stop date: 10/07/16 9:12:00 ARCADE ATTENDANT Notes: (Same as: Santana) MEDICATION WASTE Product Size: 4 mgProduct Was rayray: ___ mg Start Date: 09/07/16 Stop Date: 09/08/16 Status: Discontinued oxytocin 30 unit in D5LR 500mL 30 unit 30 unit, 500 mL, Rate: 42 ml/hr, Infuse over: 11.9 hr, Dosing Weight 136.364, kg , Route: IV, Total Volume: 500 mL, Start date: 09/08/16 2:28:00 CDT, Duration: 2 doses or times, Stop date: 09/09/16 2:15:00 CDT, Replace Every: 11.9 hr Notes: (Same as: OXYTOCIN-D5LR) Start Date: 09/08/16 Stop Date: 09/09/16 Status: Completed oxytocin 30 unit in D5LR 500mL 30 unit 30 unit, 500 mL, Rate: 42 ml/hr, Infuse over: 11.9 hr, Dosing Weight 136.364, kg , Route: IV, Total Volume: 500 mL, Start date: 09/07/16 9:13:00 CDT, Duration: 2 day, Stop date: 09/09/16 9:12:00 CDT, Replace Every: 11.9 hr Notes: (Same as: OXYTOCIN-D5LR) Start Date: 09/07/16 Stop Date: 09/08/16 Status: Discontinued 1 oral capsule 0.975 mg=1 cap, PO, Daily, # 60 cap, 1 Refill(s) Start Date: 09/10/16 Status: Ordered Multivitamins oral tablet 1 tab, Route: PO, Drug Form: TAB, Dosing Weight 136.364, kg, Daily, Start date: 09/08/16 9:00:00 CDT, Duration: 30 day, Stop date: 10/07/16 9:00:00 ARCADE ATTENDANT Start Date: 09/08/16 Stop Date: 09/10/16 Status: Discontinued terbutaline 0.25 mg, 0.25 mL, Route: SUB-Q, Drug form: INJ, PRN, Dosing Weight 136.364, kg, PRN Other -See Comment, Start date: 09/07/16 9:13:00 CDT, Duration: 1 doses or t imes, Stop date: Limited # of times Notes: DO NOT USE IN SENIOR [employer] AREA(Same As: Bhavana) Start Date: 09/07/16 Stop Date: 09/08/16 Status: Discontinued tramadol 100 mg, 2 tab, Route: PO, Drug form: TAB, Q6H, Dosing Weight 136.364, kg, PRN Pa in Score 7-10, Start date: 09/08/16 2:28:00 CDT, Duration: 30 day, Stop date: 2:27:00 ARCADE ATTENDANT Notes: Not to exceed 400mg/day. (Same As: Leena) Start Date: 09/08/16 Stop Date: 09/10/16 Status: Discontinued tramadol 50 mg, 1 tab, Route: PO, Drug form: TAB, Q4H, Dosing Weight 136.364, kg, PRN Gerald n Score 4-6, Start date: 09/08/16 2:28:00 CDT, Duration: 30 day, Stop date: 09/15 03/29 2:27:00 ARCADE ATTENDANT Notes: Not to exceed 400mg/day. (Same As: Ultram) Start Date: 09/08/16 Stop Date: 09/10/16 Status: Discontinued zolpidem 5 mg, 1 tab, Route: PO, Drug form: TAB, Bedtime, Dosing Weight 136.364, kg, PRN Sleep, Start date: 09/08/16 2:28:00 CDT, Duration: 30 day, Stop date: 10/08/16 2 :27:00 ARCADE ATTENDANT Notes: (Same As: Reggie) Start Date: 09/08/16 Stop Date: 09/10/16 Status: Discontinued Results BLOOD BANK RESULTS Most recent to 1 oldest [Reference Range]: ABO/Rh O POS *Unknown* (09/07/16 9:57 AM) Antibody Scrn Positive 1 (09/07/16 9:57 AM) AB Int Non-specific IgG Antibody *Unknown* (09/07/16 9:57 AM) Path AB Transfusion Medicine Physician Service The patient is a 31 y/o female now at 37w3d who delivered a viable male infant on 09/08/16. Immunohematologic testing demonstrates a weakly reactive IgG antibody in this patient's serum. This antibody does not demonstrate specificity against any of the major blood group antigens, consistent with a non-specific IgG antibody. The clinical significance of the antibody is likely minimal. Should RBC transfusion be required, crossmatch compatible units will be issued. The patient s electronic medical record has been reviewed for relevant information. I have reviewed the test results and concur with the resident Sophia Collazo's interpretation. CPT: 67761-GX *NA* (09/07/16 9:57 AM) 1Result Comment: 09/07/2016 12:01 [id number] "Significant Findings of positive antibody screen called to Kimberlee Felton at [address] [facility]. Read Back OK" IMMUNOLOGY Most recent to 1 oldest [Reference Range]: Treponemal Scr [Non Non Reactive Reactive] *NA* (09/07/16 9:56 AM) Hep Bs Ag [Negative] Negative *NA* (09/07/16 9:56 AM) HEMATOLOGY Most recent to 1 oldest [Reference Range]: WBC [3.7-10.4 K/CMM] 9.7 K/CMM (09/07/16 9:56 AM) RBC [4.20-5.40 3.98 M/CMM M/CMM] *LOW* (09/07/16 9:56 AM) Hgb [12.0-16.0 g/dL] 11.7 g/dL *LOW* (09/07/16 9:56 AM) Hct [36.0-48.0 %] 35.3 % *LOW* (09/07/16 9:56 AM) MCV [80.0-98.0 fL] 88.8 fL (09/07/16 9:56 AM) MCH [27.0-31.0 pg] 29.3 pg (09/07/16 9:56 AM) MCHC [32.0-36.0 33.0 g/dL g/dL] (09/07/16 9:56 AM) RDW [11.5-14.5 %] 14.6 % *HI* (09/07/16 9:56 AM) Platelet [133-450 178 K/CMM K/CMM] (09/07/16 9:56 AM) MPV [7.4-10.4 fL] 10.3 fL (09/07/16 9:56 AM) Segs [45.0-75.0 %] 75.9 % *HI* (09/07/16 9:56 AM) Lymphocytes 18.1 % [20.0-40.0 %] *LOW* (09/07/16 9:56 AM) Monocytes [2.0-12.0 5.0 % %] (09/07/16 9:56 AM) Eosinophils [0.0-4.0 0.7 % %] (09/07/16 9:56 AM) Basophils [0.0-1.0 0.3 % %] (09/07/16 9:56 AM) Segs-Bands # 7.3 K/CMM [1.5-8.1 K/CMM] (09/07/16 9:56 AM) Lymphocytes # 1.8 K/CMM [1.0-5.5 K/CMM] (09/07/16 9:56 AM) Monocytes # [0.0-0.8 0.5 K/CMM K/CMM] (09/07/16 9:56 AM) Eosinophils # 0.1 K/CMM [0.0-0.5 K/CMM] (09/07/16 9:56 AM) Immunizations Given and Recorded Vaccine Date Status [...] school. Alcohol Never Smoking Status Never smoker; Exposed at work; Cigarette Smoking Last 365 Days No; Reg Smoking Cessation Counseling No Assessment and Plan Extracted from: Title: Clinical Document Author: Jazmín Lopez MD Date: 09/10/16 R1: Post progress Note S: No complaints, Reports pain is well under controll, андрей reg diet, passing flatus and voiding freely, Deneis sob/ palpitaions/dizziness. O: VitalsTmp(F)[id number] 09/10 00:0098.400375/7618------ 09/09 10:1697.305195/8820------ 09/09 00:0198.269088/6220------ 09/08 15:2898.032105/8018------ 09/08 08:1697.563157/7918------ 24 Hr Tmax: 98.0F (36.67c) at 09/10 00:00Vital Signs are the last 5 in the past 48 hours. Gen: NAD CV: RRR PULM:CTAB ABD: soft, approp tender, ND, FF, +bs Incision: bandage c/d/i Repair Order Clerk: Lochia wnl EXT: calves non ttp Labs: O+/NEG RPR neg HepBsAg neg HIV neg A/P: 31 yo s/p Vaginal Breech delivery at term. 1. PPD# 2, AFVSS 2.HEME:11.7 -->250cc 3. Pain: Tolarating well in current regimen 4.GI/: Tolerating a regular diet 5.RH+/RBImm/BR + WILBERT/BCM-MPDPS, consents signed in trifold 6.DispoContinue with routine pp care, AM DC Jazmín Lopez MD PGY-1 Extracted from: Title: Clinical Document Author: Janene Marino MD Date: 09/07/16 R1 Admit H&P LMP: unknown EDC: 09/26/2016 EGA: 37w2d CC: Here for induction HPI: 31yo at 37w2d by 8wk CRL c/w 22wk MFM sono, with IUGR, here for induction of labor. Pt denies LOF, VB, ctx, dysuria, scotoma, RUQ pain and HAs. FM+ PNC: Dr Romero PRERNA to [facility] last appt: 09/02 1. [...] - consents signed OB Hx: 07/13/2003, male infant, 42 weeks, 8 pounds 3 ounces, , no complications, 08/14/2009, male , 40 weeks, 8 pounds 7 ounces, , no complications. 01/13/2012, male infant, 40 weeks, 8 pounds 4 ounces, , no complications. Repair Order Clerk: STDs: denies Paps: denies abN paps Last pap 07/30 NILM PMH: denies PSH: denies Meds: PNV All: NKDA FH: father: T2DM, ME at 50s. SH: Denies D/A/T, lives with and 3 children, feels safe at home PE: VitalsTmp(F)Tmp(C)[id number] 09/07 08:1897.336.94zgsp985/70---9618--------- 24 Hr Tmax: 97.3F (36.28c) at 09/07 08:1824 Hr Tmin: 97.3F (36.28c) at 09/07 08:18 Gen: NAD CV: RRR Resp: CTAB Abd: gravid, soft, 2000g by leopolds SSE: deferred SVE: cl/th/hi soft, mid BS of 3 [place]: no ctx EFM: 130s baseline, mod autumn, [...] EFW: 1859g, 1st %tile, Last BPP 09/06 06/21. Will begin induction with cervidil 7: Prior [...] had SVT and brother of mom had ME at age 25. Family history was evaluated [...]
--- OUTSIDE RECORDS SUMMARY | 2019-08-03 06:08 | XMS REPORT | Summary of Care ---
Author Author [facility] Organization [facility] Address Unknown Phone Unavailable Encounter HQ Alexis(VICENTA) [id number] Date(s): 10/25/16 - 10/25/16 [facility] [address] [place] [address] Discharge Disposition: Home or Self Care Attending Physician: Janene You MD Referring Physician: Janene You MD Vital Signs 1 2 3 Most recent to oldest [Reference Range]: 162.56 cm (10/14/16 11:41 AM) Height 115/63 mmHg (10/25/16 3:00 PM) 118/60 mmHg (10/25/16 2:00 PM) 109/56 mmHg (10/25/16 1:45 PM) Blood Pressure [90-140/60-90 mmHg] 16 BRMIN (10/25/16 3:00 PM) 18 BRMIN (10/25/16 2:00 PM) 15 BRMIN (10/25/16 1:45 PM) Respiratory Rate [14-20 BRMIN] 72 bpm (10/25/16 8:27 AM) Peripheral Pulse Rate [60-100 bpm] 129.091 kg (10/14/16 11:41 AM) Weight 48.85 m2 (10/14/16 11:41 AM) Body Mass Index Problem List Condition Effective Dates Status Health Status Informant growth Active restriction(Confirme d) Morbid Active obesity(Confirmed) (Confirmed) 12/11/15 - 09/08/16 Resolved (Confirmed) 04/08/11 - 01/13/12 Resolved (Confirmed) 11/07/08 - 08/14/09 Resolved (Confirmed) 09/22/02 - 07/13/03 Resolved Allergies, Adverse Reactions, Alerts Substance Reaction Severity Status NKDA Active Medications ANES diphenhydrAMINE 12.5 mg, 0.25 mL, Route: IVP, Drug form: INJ, Q6H, Dosing Weight 129.091, kg, NJ N Itching, Start date: 10/25/16 13:04:00 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, Duration: 1 day, Stop date: 13:03:00 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 Notes: (Same as: Benadryl) Start Date: 10/25/16 Stop Date: 10/26/16 Status: Discontinued ANES flumazenil 0.2 mg, 2 mL, Route: IVP, Drug form: INJ, PRN, Dosing Weight 129.091, kg, PRN Be nzodiazepine Reversal, Initial dose, Start date: 10/25/16 10:15:00 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, Duration : 1 day, Stop date: 10/26/16 10:14:00 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 Notes: (Same as: Romazicon) Start Date: 10/25/16 Stop Date: 10/25/16 Status: Discontinued ANES flumazenil 0.2 mg, 2 mL, Route: IVP, Drug form: INJ, PRN, Dosing Weight 129.091, kg, PRN Be nzodiazepine Reversal, Initial dose, Start date: 10/25/16 13:04:00 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, Duration : 1 day, Stop date: 10/26/16 13:03:00 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 Notes: (Same as: Romazicon) Start Date: 10/25/16 Stop Date: 10/26/16 Status: Discontinued ANES hydrALAZINE 10 mg, 0.5 mL, Route: IVP, Drug form: INJ, Q20Min, Dosing Weight 129.091, kg, NJ N Elevated BP, Start date: 10/25/16 13:04:00 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, Duration: 2 doses or times, St op date: Limited # of times Notes: (Same as: Apresoline)Push over 5 minutes Start Date: 10/25/16 Stop Date: 10/26/16 Status: Discontinued ANES HYDROmorphone 0.5 mg, 0.25 mL, Route: IVP, Drug form: INJ, Q5Min, Dosing Weight 129.091, kg, P RN Pain Score 7-10, Start date: 10/25/16 10:15:00 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, Duration: 4 doses or time s, Stop date: Limited # of times Notes: Same as Dilaudid Start Date: 10/25/16 Stop Date: 10/25/16 Status: Discontinued ANES HYDROmorphone 0.5 mg, 0.25 mL, Route: IVP, Drug form: INJ, Q5Min, Dosing Weight 129.091, kg, P RN Pain Score 7-10, Start date: 10/25/16 13:04:00 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, Duration: 4 doses or time s, Stop date: Limited # of times Notes: Same as Dilaudid Start Date: 10/25/16 Stop Date: 10/26/16 Status: Discontinued ANES labetalol 10 mg, 2 mL, Route: IVP, Drug form: INJ, Q5Min, Dosing Weight 129.091, kg, PRN E levated BP, Start date: 10/25/16 13:04:00 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, Duration: 5 doses or times, Stop date: Limited # of times Start Date: 10/25/16 Stop Date: 10/26/16 Status: Discontinued ANES naloxone 0.4 mg, 1 mL, Route: IVP, Drug form: INJ, Q2MIN, Dosing Weight 129.091, kg, PRN Narcotic Reversal, Start date: 10/25/16 10:15:00 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, Duration: 8 doses or times , Stop date: Limited # of times Notes: Same as Narcan Start Date: 10/25/16 Stop Date: 10/25/16 Status: Discontinued ANES naloxone 0.4 mg, 1 mL, Route: IVP, Drug form: INJ, Q2MIN, Dosing Weight 129.091, kg, PRN Narcotic Reversal, Start date: 10/25/16 13:04:00 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, Duration: 8 doses or times , Stop date: Limited # of times Notes: Same as Narcan Start Date: 10/25/16 Stop Date: 10/26/16 Status: Discontinued ANES ondansetron 4 mg, 2 mL, Route: IVP, Drug form: INJ, ONCE, Dosing Weight 129.091, kg, PRN Tee sea & Vomiting, Start date: 10/25/16 10:15:00 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 Notes: (Same as: Santana) MEDICATION WASTE Product Size: 4 mgProduct Was rayray: ___ mg Start Date: 10/25/16 Stop Date: 10/26/16 Status: Discontinued ANES ondansetron 4 mg, Route: IVP, ONCE, Dosing Weight 129.091, kg, PRN Nausea & Vomiting, Start date: 10/25/16 13:04:00 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 Start Date: 10/25/16 Stop Date: 10/25/16 Status: Completed ANES oxyCODONE 5 mg, 1 tab, Route: PO, Drug form: TAB, Q4H, Dosing Weight 129.091, kg, PRN Pain Score 4-6, Start date: 10/25/16 13:04:00 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, Duration: 1 day, Stop date: 10/26 13:03:00 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 Notes: (Same as: Roxicodone) Start Date: 10/25/16 Stop Date: 10/26/16 Status: Discontinued ANES promethazine 6.25 mg, 0.25 mL, Route: IVPB, Drug form: INJ, ONCE, Dosing Weight 129.091, kg, PRN Nausea & Vomiting, Start date: 10/25/16 13:04:00 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 Notes: Do not give IV push. (Same as: Phenergan) Start Date: 10/25/16 Stop Date: 10/26/16 Status: Discontinued ibuprofen 800 mg oral tablet 800 mg=1 tab, PO, PRN, PRN Pain, Take with food, # 30 tab, 0 Refill(s) Start Date: 10/25/16 Stop Date: 11/26/16 Status: Ordered Tylenol with Codeine #3 oral tablet 1 tab, PO, PRN, PRN Pain Score 6-10, # 10 tab, 0 Refill(s) Start Date: 10/25/16 Stop Date: 11/25/16 Status: Ordered Results BLOOD BANK RESULTS Most recent to 1 oldest [Reference Range]: ABO/Rh O POS *Unknown* (10/25/16 8:35 AM) Antibody Scrn Negative (10/25/16 8:35 AM) HEMATOLOGY Most recent to 1 oldest [Reference Range]: WBC [3.7-10.4 K/CMM] 8.1 K/CMM (10/25/16 8:35 AM) RBC [4.20-5.40 4.47 M/CMM M/CMM] (10/25/16 8:35 AM) Hgb [12.0-16.0 g/dL] 12.9 g/dL (10/25/16 8:35 AM) Hct [36.0-48.0 %] 38.7 % (10/25/16 8:35 AM) MCV [80.0-98.0 fL] 86.6 fL (10/25/16 8:35 AM) MCH [27.0-31.0 pg] 28.9 pg (10/25/16 8:35 AM) MCHC [32.0-36.0 33.3 g/dL g/dL] (10/25/16 8:35 AM) RDW [11.5-14.5 %] 14.3 % (10/25/16 8:35 AM) Platelet [133-450 183 K/CMM K/CMM] (10/25/16 8:35 AM) MPV [7.4-10.4 fL] 9.8 fL (10/25/16 8:35 AM) Segs [45.0-75.0 %] 65.7 % (10/25/16 8:35 AM) Lymphocytes 25.9 % [20.0-40.0 %] (10/25/16 8:35 AM) Monocytes [2.0-12.0 6.0 % %] (10/25/16 8:35 AM) Eosinophils [0.0-4.0 2.0 % %] (10/25/16 8:35 AM) Basophils [0.0-1.0 0.4 % %] (10/25/16 8:35 AM) Segs-Bands # 5.3 K/CMM [1.5-8.1 K/CMM] (10/25/16 8:35 AM) Lymphocytes # 2.1 K/CMM [1.0-5.5 K/CMM] (10/25/16 8:35 AM) Monocytes # [0.0-0.8 0.5 K/CMM K/CMM] (10/25/16 8:35 AM) Eosinophils # 0.2 K/CMM [0.0-0.5 K/CMM] (10/25/16 8:35 AM) Immunizations Given and Recorded Vaccine Date [...] No Assessment and Plan Extracted from: Title: UNDER CUTTER Preop H&P Author: Janene You Date: 10/25/16 UNDER CUTTER H&P CC: desires sterilization History of Present [...]
--- OUTSIDE RECORDS SUMMARY | 2019-08-03 06:08 | XMS REPORT | Summary of Care ---
Author Author [facility] Organization [facility] Address Unknown Phone Unavailable Encounter HQ Alexis(FIN) [id number] Date(s): 05/08/18 - 05/08/18 [facility] [address], [address] [place] [address]- [phone] Discharge Disposition: Home or Self Care Attending Physician: Kaye Smith DO Vital Signs Most recent to 1 oldest [Reference Range]: Height 162.56 cm (05/08/18 12:58 PM) Temperature Oral 98.0 DegF [96.4-99.1 DegF] (05/08/18 12:58 PM) Blood Pressure 95/65 mmHg [90-140/60-90 mmHg] (05/08/18 12:58 PM) Respiratory Rate 14 BRMIN [14-20 BRMIN] (05/08/18 12:58 PM) Peripheral Pulse 72 bpm Rate [60-100 bpm] (05/08/18 12:58 PM) Weight 126.818 kg (05/08/18 12:58 PM) Body Mass Index 47.99 m2 (05/08/18 12:58 PM) Problem List Condition Effective Dates Status Health Status Informant Body mass index Active (BMI) 45.0-49.9, adult(Confirmed) Hypertriglyceridemia Active (Confirmed) Morbid Active obesity(Confirmed) (Confirmed) 12/11/15 - 09/08/16 Resolved (Confirmed) 04/08/11 - 01/13/12 Resolved (Confirmed) 11/07/08 - 08/14/09 Resolved (Confirmed) 09/22/02 - 07/13/03 Resolved Allergies, Adverse Reactions, Alerts Substance Reaction Severity Status NKDA Active Medications No Known Medications Results No data available for this section Immunizations Given and Recorded Vaccine Date Status Refusal Reason influenza virus vaccine, inactivated1 01/15/12 Given rubella virus vaccine2, 3 08/15/09 Given 1Result Comment: arm Left 2Reason for Medication: Vaccination 3Result Comment: Pt and instructed to not get for 3 months, instructed vaccine could hurt fetus if pt gets within 3 months. pt and state they understand. Procedures Procedure Date Related Diagnosis Body Site Status Papanicolaou smear taken 10/14/17 Completed TL - Tubal ligation 10/14/16 Completed Social History Social History Type Response Substance Abuse Use: None. Sexual Sexually active: Yes. Employment/School Status: Employed. 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 Alcohol Never Smoking Status Never smoker; Previous treatment: None; Ready to change: No; Concerns about tobacco use in household: No; Exposure to Tobacco Smoke None; Cigarette Smoking Last 365 Days No; Reg Smoking Cessation Counseling No; Tobacco use per day: 0; Number of years: 0; Total pack years: 0; entered on: 05/08/18 Assessment and Plan No data available for this section
--- OUTSIDE RECORDS SUMMARY | 2019-08-03 06:08 | XMS REPORT | Summary of Care ---
Author Author [facility] Organization [facility] Address Unknown Phone Unavailable Encounter JAMES Espinoza(VICENTA) [id number] Date(s): 07/11/16 - 07/16/16 [facility] [address] provided by [facility] [employer] [facility] [place] [address]- Discharge Disposition: Home or Self Care Attending Physician: Nash Romero MD Admitting Physician: Nash Romero MD Vital Signs 1 2 3 Most recent to oldest [Reference Range]: 162.56 cm (07/09/16 1:28 PM) Height 98.0 DegF (07/16/16 10:28 AM) 97.8 DegF (07/16/16 12:00 AM) 98.0 DegF (07/15/16 7:30 PM) Temperature Oral [96.4-99.1 DegF] 114/78 mmHg (07/16/16 10:28 AM) 107/69 mmHg (07/16/16 12:00 AM) 119/79 mmHg (07/15/16 7:30 PM) Blood Pressure [90-140/60-90 mmHg] 18 BRMIN (07/16/16 10:28 AM) 18 BRMIN (07/15/16 3:46 PM) 16 BRMIN (07/15/16 10:15 AM) Respiratory Rate [14-20 BRMIN] 94 bpm (07/15/16 3:46 PM) 118 bpm *HI* (07/15/16 10:15 AM) 90 bpm (07/15/16 9:45 AM) Peripheral Pulse Rate [60-100 bpm] 1.286 kg (07/09/16 1:28 PM) Weight 0.49 m2 (07/09/16 1:28 PM) Body Mass Index Problem List Condition Effective Dates Status Health Status Informant growth Active restriction(Confirme d) (Confirmed) 12/11/15 Active (Confirmed) 04/08/11 - 01/13/12 Resolved (Confirmed) 11/07/08 - 08/14/09 Resolved (Confirmed) 09/22/02 - 07/13/03 Resolved Allergies, Adverse Reactions, Alerts Substance Reaction Severity Status NKDA Active Medications betamethasone 12 mg, Route: IM, Q24H, Dosing Weight 1.286, kg, Start date: 07/09/16 14:00:00 C DT, Duration: 2 doses or times, Stop date: 07/10/16 14:00:00 CDT Start Date: 07/09/16 Stop Date: 07/09/16 Status: Deleted betamethasone 12 mg, Route: IM, Q24H, Dosing Weight 128.636, kg, Start date: 07/09/16 14:00:00 CDT, Duration: 2 doses or times, Stop date: 07/10/16 14:00:00 CDT Start Date: 07/09/16 Stop Date: 07/09/16 Status: Deleted betamethasone 12 mg, 2 mL, Route: IM, Drug form: INJ, Q24H, Dosing Weight 128.636, kg, Start d ate: 07/09/16 14:00:00 CDT, Duration: 2 doses or times, Stop date: 07/10/16 14:0 0:00 CDT Notes: (betamethasone acetate-sodium phosphate 6 mg/ml INJ) (Same As: Celestone Soluspan) Start Date: 07/09/16 Stop Date: 07/10/16 Status: Completed Lactated Ringers 1,000 mL 1,000 mL, Rate: 125 ml/hr, Infuse over: 8 hr, Route: IV, Dosing Weight 1.286 kg, Total Volume: 1,000, Start date: 07/11/16 16:38:00 CDT, Duration: 30 day, Stop date: 08/10/16 16:37:00 CDT Start Date: 07/11/16 Stop Date: 07/16/16 Status: Discontinued Lactated Ringers 500 mL 500 mL, Rate: 999 ml/hr, Infuse over: 0.5 hr, Route: IV, Dosing Weight 1.286 kg, Total Volume: 500, Start date: 07/11/16 15:48:00 CDT, Duration: 30 day, Stop da te: 08/10/16 15:47:00 CDT Start Date: 07/11/16 Stop Date: 07/16/16 Status: Discontinued multivitamin, 1 tab, Route: PO, Drug Form: TAB, Dosing Weight 128.636, kg, Daily, Start date: 07/10/16 9:00:00 CDT, Duration: 30 day, Stop date: 08/08/16 9:00:00 CDT Start Date: 07/10/16 Stop Date: 07/16/16 Status: Discontinued 1 oral capsule 1 cap, PO, Daily, 0 Refill(s) Start Date: 07/16/16 Status: Ordered DHA 2 cap, PO, Daily, 0 Refill(s) Start Date: 07/09/16 Status: Ordered Results BLOOD BANK RESULTS 1 2 3 Most recent to oldest [Reference Range]: O POS *Unknown* (07/15/16 12:03 AM) O POS *Unknown* (07/12/16 3:55 AM) O POS *Unknown* (07/09/16 2:14 PM) ABO/Rh Negative (07/15/16 12:03 AM) Negative (07/12/16 3:55 AM) Negative (07/09/16 2:14 PM) Antibody Scrn CHEM PANEL 1 2 3 Most recent to oldest [Reference Range]: NEGATIVE *NA* (07/09/16 4:10 PM) HSV 1 IgM NEGATIVE 1 *NA* (07/09/16 4:10 PM) HSV 2 IgM 1Result Comment: REFERENCE RANGE: NEGATIVE The IFA procedure for measuring IgM antibodies to HSV 1 and HSV 2 detects both type-common and type- specific HSV antibodies. Thus, IgM reactivity to both HSV 1 and HSV 2 may represent crossreactive HSV antibodies rather than exposure to both HSV 1 and HSV 2. This test was developed and its analytical performance characteristics have been determined by [facility]. It has not been cleared or approved by FDA. This assay has been validated pursuant to the CLIA regulations and is used for clinical purposes. Test Performed at: [facility]. [address] [place] [address] Kendra Grullon MD SPECIAL CHEMISTRY 1 2 3 Most recent to oldest [Reference Range]: 5.2 % (07/10/16 5:38 AM) Hgb A1C [<=5.6 %] URINE CHEM 1 2 3 Most recent to oldest [Reference Range]: 148.00 mg/dL *NA* (07/09/16 4:26 PM) U Creatinine 13.3 mg/dL *NA* (07/09/16 4:26 PM) U Protein 0.1 *NA* (07/09/16 4:26 PM) U Prot/Creat IMMUNOLOGY 1 2 3 Most recent to oldest [Reference Range]: Non Reactive *NA* (07/09/16 2:14 PM) Treponemal Scr [Non Reactive] <0.2 1 *NA* (07/09/16 4:10 PM) CMV IgM < OR=0.90 2 *NA* (07/09/16 4:10 PM) Toxoplasma IgG NEGATIVE 3 *NA* (07/09/16 4:10 PM) Toxoplasma IgM Negative *NA* (07/09/16 2:14 PM) HIV. [Negative] <0.90 4 *NA* (07/09/16 4:10 PM) Rubella IgM Negative *NA* (07/09/16 2:14 PM) Hep Bs Ag [Negative] 1Result Comment: Reference range: < or=0.8 Interpretive criteria: [...] two or more weeks. Test Performed at: [facility] [address] [place] [address] Kendra Grullon MD 2Result Comment: REFERENCE RANGE: < OR=0.90 Interpretive criteria: <or=0.90 negative 0.91-1.09 equivocal >or=1.10 positive A positive result indicates infection with Toxoplasma gondii at some time, but does not differentiate between an active or past infection. Test Performed at: [facility] [id number] [place] [phone] H Howard Grullon MD 3Result Comment: Test Performed at: [facility] [id number] [place] [phone] H Howard Grullon MD 4Result Comment: REFERENCE RANGE: <0.90 INTERPRETIVE CRITERIA: <0.90 NEGATIVE 0.90-1.09 EQUIVOCAL >or=1.10 POSITIVE Test Performed at: [facility] [address] [place] [phone] H Howard Grullon MD HEMATOLOGY 1 2 3 Most recent to oldest [Reference Range]: 11.3 K/CMM *HI* (07/09/16 2:14 PM) WBC [3.7-10.4 K/CMM] 4.08 M/CMM *LOW* (07/09/16 2:14 PM) RBC [4.20-5.40 M/CMM] 12.0 g/dL (07/09/16 2:14 PM) Hgb [12.0-16.0 g/dL] 36.4 % (07/09/16 2:14 PM) Hct [36.0-48.0 %] 89.1 fL (07/09/16 2:14 PM) MCV [80.0-98.0 fL] 29.4 pg (07/09/16 2:14 PM) MCH [27.0-31.0 pg] 32.9 g/dL (07/09/16 2:14 PM) MCHC [32.0-36.0 g/dL] 15.4 % *HI* (07/09/16 2:14 PM) RDW [11.5-14.5 %] 201 K/CMM (07/09/16 2:14 PM) Platelet [133-450 K/CMM] 10.0 fL (07/09/16 2:14 PM) MPV [7.4-10.4 fL] 77.5 % *HI* (07/09/16 2:14 PM) Segs [45.0-75.0 %] 16.9 % *LOW* (07/09/16 2:14 PM) Lymphocytes [20.0-40.0 %] 4.4 % (07/09/16 2:14 PM) Monocytes [2.0-12.0 %] 0.9 % (07/09/16 2:14 PM) Eosinophils [0.0-4.0 %] 0.3 % (07/09/16 2:14 PM) Basophils [0.0-1.0 %] 8.8 K/CMM *HI* (07/09/16 2:14 PM) Segs-Bands # [1.5-8.1 K/CMM] 1.9 K/CMM (07/09/16 2:14 PM) Lymphocytes # [1.0-5.5 K/CMM] 0.5 K/CMM (07/09/16 2:14 PM) Monocytes # [0.0-0.8 K/CMM] 0.1 K/CMM (07/09/16 2:14 PM) Eosinophils # [0.0-0.5 K/CMM] Immunizations Given and Recorded Vaccine Date Status [...] Yes. Alcohol Never Smoking Status Never smoker; Tobacco use per day: 0; Number of years: 0; Total pack years: 0; Previous treatment: None; Ready to change: No; Concerns about tobacco use in household: No; Exposure to Tobacco Smoke None; Cigarette Smoking Last 365 Days No; Reg Smoking Cessation Counseling No Assessment and Plan Extracted from: Title: OB Antepartum Progress Note Author: Maddie Freed MD Date: 07/16/16 Impression and Plan pt is a 31yr at 29wks and 5days with severe IUGR and polyhydramnios with placentamegaly await repeat bpp with doppler transfer of care to [facility] pt is aware and agrees with plan pt to bedrest with weekly PNC visit with [facility] and bppwith doppler biweekly pt discussed with MD Lillian for further care Appreciate all consults from Dr Luque and Lillian Extracted from: Title: MFM consult note Author: Jessica Lynn NP Date: 07/09/16 Patient: KRISTI LEAL Age: 31 years Sex: Female : 1985 Associated Diagnoses: None Author: Jessica Lynn NP Basic Information Gestational Age: * Note: EGA calculated as of 07/09/2016 LEVI: 09/26/2016EGA*: 28 weeks 5 days Type: AuthoritativeMethod Date: 12/11/2015 Method: Last Menstrual Period (12/11/2015) [...] Vasectomy OBHx: 2002 , FT, Male, 8lbs3, [facility] 2008 , FT, Male, 8lbs6, [facility] 2011 , FT, Male, 8obs3, [place] [facility] [place] [facility] [place]ynHx: Denies STI's or Abnormal Paps PMHx: Morbid Obesity SurgHx: Denies Meds: PNV Allergies: NKDA Social: Negative x 3 Family Hx: HTN, DM Histories History ,0,0,3 # 1 Baby 1Outcome Date: 07/13/2003Neonate Outcome: Live Outcome or Result: Vaginal Gender: MaleGest Age: 42 weeks Wt: 3714 g Hospital: [facility] Labor: -- Child's Name: --Baby's Father: -- Anesthesia Type: Epidural # 2 Baby 1Outcome Date: 08/14/2009Neonate Outcome: Live Outcome or Result: Vaginal Gender: MaleGest Age: 40 weeks Wt: 3827 g Hospital: --[facility] Labor: -- Child's Name: --Baby's Father: -- # 3 Baby 1Outcome Date: 01/13/2012Neonate Outcome: Live Outcome or Result: Vaginal Gender: MaleGest Age: 40 weeks Wt: 3714 g Hospital: --[facility] Labor: -- Child's Name: --Baby's Father: -- Past Medical History: Resolved ([id number]): Onset on 04/08/2011 at 25 years. Resolved on 01/13/2012 at 26 years. ([id number]): Onset on 11/07/2008 at 23 years. Resolved on 08/14/2009 at 24 years. ([id number]): Onset on 09/22/2002 at 17 years. Resolved [...] list: Problems (Active Problems Only) (SNOMED CT: 499406599, Onset: 12/11/15) growth restriction (SNOMED CT: 0639079286, Onset: --) Physical Examination VS/Measurements Inpatient Vital signs (ST) VitalsTmp(F)[id number] 07/09 12:[id number]------ 24 Hr Tmax: 97.4F (36.33c) at 07/09 12:28Vital Signs are the last 5 in the [...] Warm, No rash. Psychiatric: Cooperative, Appropriate mood & affect, Normal judgment, Non-suicidal. Review / Management Results review: Labs (Last four charted values) WBC H 11.3(JUL 09) Hgb 12.0(JUL 09) Hct 36.4(JUL 09) Plt 201(JUL 09). Impression and Plan 31 yo at 28w5d that came to the hospital 2/[address] Freed requested M referral as patient has had IUGR first [...] patient and the patient verbalized understanding KP Samuel- Addendum MFM Attending Note: by I have seen and examined the patient. I agree with the note as documented by Shane Leung. I agree with admission for monitoring and steroid administration. Ms. Holley Leal and I discussed the differential causes of growth restriction including on genetic (normal NIPT), infectious, constitutional (all prior babies > 8 lbs), and 07/09/2016 placental. I recommend weekly surveillance with BPPs and Doppler studies 16:07 and serial ultrasounds to assess growth q [...]
--- OUTSIDE RECORDS SUMMARY | 2019-08-03 06:08 | XMS REPORT | Summary of Care ---
Author Author [facility] Organization [facility] Address Unknown Phone Unavailable Encounter HQ Alexis(FIN) [id number] Date(s): 11/08/18 - 11/08/18 [facility] [address] [place] [address]- Discharge Disposition: Home or Self Care Attending Physician: Kaye Smith DO Vital Signs Most recent to 1 oldest [Reference Range]: Height 162.56 cm (11/08/18 9:32 AM) Temperature Oral 98.3 DegF [96.4-99.1 DegF] (11/08/18 9:32 AM) Blood Pressure 103/70 mmHg [90-140/60-90 mmHg] (11/08/18 9:32 AM) Respiratory Rate 14 BRMIN [14-20 BRMIN] (11/08/18 9:32 AM) Peripheral Pulse 73 bpm Rate [60-100 bpm] (11/08/18 9:32 AM) Weight 122.727 kg (11/08/18 9:32 AM) Body Mass Index 46.44 m2 (11/08/18 9:32 AM) Problem List Condition Effective Dates Status Health Status Informant Body mass index Active (BMI) 45.0-49.9, adult(Confirmed) Hypertriglyceridemia Active (Confirmed) Morbid Active obesity(Confirmed) (Confirmed) 12/11/15 - 09/08/16 Resolved (Confirmed) 04/08/11 - 01/13/12 Resolved (Confirmed) 11/07/08 - 08/14/09 Resolved (Confirmed) 09/22/02 - 07/13/03 Resolved Allergies, Adverse Reactions, Alerts No Known Medication Allergies Medications naproxen 500 mg oral tablet 500 mg=1 tab, PO, BID, PRN Pain, X 14 day, # 30 tab, 2 Refill(s), Pharmacy: [id number] Start Date: 11/08/18 Stop Date: 12/20/18 Status: Completed phentermine 37.5 mg oral tablet 37.5 mg=1 tab, PO, Daily, X 30 day, # 30 tab, 1 Refill(s) Start Date: 11/08/18 Stop Date: 01/07/19 Status: Completed Results No data available for this section [...] 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 Alcohol Never Smoking Status Never smoker; Previous treatment: None; Ready to change: No; Concerns about tobacco use in household: No; Exposure to Tobacco Smoke None; Cigarette Smoking Last 365 Days No; Reg Smoking Cessation Counseling No; Tobacco use per day: 0; Number of years: 0; Total pack years: 0; entered on: 11/08/18 Assessment and Plan No data available for this section
== END 2019-08-03 02:52 | disposition home or self-care (01) ==
LOC: FSED 22:30
DX: R05 Cough (principal); J20.9 Acute bronchitis, unspecified
CPT/HCPCS: 71046; 99282